=== PATIENT | male | born 1950 | race Caucasian/White ===

== ENCOUNTER → 2020-11-13 | Outpatient (CLI) | payer OTHER | LOC: SJCVCIMAG 10:04 | PROVIDERS: ATTEND Internal Medicine | DX: I08.3 Combined rheumatic disorders of mitral, aortic and tricuspid valves (principal); I27.20 Pulmonary hypertension, unspecified; E78.5 Hyperlipidemia, unspecified; I10 Essential (primary) hypertension; Z79.899 Other long term (current) drug therapy ==

== ENCOUNTER 2021-02-05 09:12 | Observation (INO) | payer OTHER ==
[~2021-02-05] VITALS: Ht 167.6 cm; Wt 80.7 kg
[2021-02-05 09:56] VITALS: BP 149/78
[2021-02-05 09:57] LABS: HEMOGLOBIN 15.6 gm/dL (14.0-18.0); MCH 29.7 pg (26.0-34.0); MCHC 33.1 g/dL (28.0-37.0); MCV 89.6 fL (80.0-100.0); RBC 5.25 mil/uL (4.50-6.00); RDW 13.3 % (10.5-14.5); WBC 4.8 thou/uL (4.0-11.0)
[2021-02-05] MEDS ORDERED: LIPITOR20 MG PO (10:01)
[2021-02-05] MEDS ORDERED: LORATIDINE 10 M10 M1 PO (10:02)
[2021-02-05] MEDS ORDERED: MOBIC7.5 MG PO (10:03)
[2021-02-05] MEDS ORDERED: TOPROL XL25 MG PO (10:03)
[2021-02-05] MEDS ORDERED: NITROSTAT0.4 M1 SUBLING (10:04)
[2021-02-05] MEDS ORDERED: FISH OIL 1,001000 M3 PO (10:05)
[2021-02-05] MEDS ORDERED: PRILOSEC OTC20 MG PO (10:05)
[2021-02-05 10:11] LABS: CREATININE 0.9 mg/dL (0.7-1.3)
[2021-02-05 19:15] VITALS: BP 148/77
--- NOTE | 2021-02-05 19:34 | NUR ---
ASSUMED CARE OF PT AT APPROX 1545 FROM [facility] MONITOR. ADMISSION COMPLETE. R GROIN SITE CDI, NO BRUISING OR HEMATOMA. PT SETTLED IN ROOM. PT A&OX4, NO C/O PAIN OR DISTRESS. BEDREST COMPLETE. WILL CONTINUE TO MONITOR FOR CHANGES AND FOLLOW POC.
[2021-02-06 05:17] VITALS: BP 135/65
[2021-02-06 05:57] LABS: HEMATOCRIT 42.4 % (42.0-52.0); MCH 29.5 pg (26.0-34.0); MCHC 32.9 g/dL (28.0-37.0); MCV 89.6 fL (80.0-100.0); RBC 4.74 mil/uL (4.50-6.00); RDW 13.5 % (10.5-14.5); WBC 6.9 thou/uL (4.0-11.0)
[2021-02-06 06:03] LABS: ALBUMIN 3.1 g/dL (3.4-5.0); CALCIUM 8.4 mg/dL (8.5-10.1); POTASSIUM 4.1 mmol/L (3.5-5.1); TOTAL BILIRUBIN 0.5 mg/dL (0.2-1.0)
[2021-02-06] MEDS ORDERED: EFFIENT10 MG PO (07:31)
[2021-02-06] MEDS ORDERED: ASPIRIN325 PO (07:31)
--- NOTE | 2021-02-06 08:06 | NUR ---
PATIENT REMAINS A/OX4. PROCEDURE SITE INTACT. AFEBRILE. DENIES SOA. VSS. DENIES NEEDS. REPORT GIVEN TO ONCOMING RN
[2021-02-06 08:13] VITALS: BP 148/80
[2021-02-06 09:39] VITALS: BP 148/80
--- NOTE | 2021-02-06 10:51 | NUR ---
ALERT AND ORIENTED AND HAS DENIED PAIN. VITALS STABLE. UP AD IDA AND TOLERATING DIET. DC ORDERS RECEIVED AND RX CALLED IN TO HIS PHARMACY BY [facility]. DC INSTRUCTIONS GIVEN TO PATIENT AND QNS ANSWERED. IV DC'D AND PATIENT DC'D AT 1045.
--- NOTE | 2021-02-08 23:54 | CATHLAB ---
[facility] [address] [place] [address] INVASIVE PROCEDURE REPORT Name: GABRIEL MICHELE Room #: 200-I [facility] [place] Stewart#: [id number] Admission: 02/05/21 Attend Phys: Marcio Dia Discharge: 02/06/21 Date of : 48 Report #: [id number] THIS REPORT FOR: cc: AMIRA PRABHAKAR FAMILY PHYSICIAN or PCP Marcio Dia MD ~ APPROVED REPORT Study performed: 02/05/2021 11:04:27 Patient Details The patient is a 70 year-old male Event Personnel Marcio Dia Facilities Maintenance Technician, Marilia Johnston RN RN, , Kate Main RTR, DOUGHNUT MACHINE OPERATOR HELPER Monitor, Francy Finnegan Dotson, Jordan RTR Monitor Procedures Performed Art Access - R femoral artery* Left Heart Cath w/or w/o Coronaries [id number] [facility] Place w/wo Plasty Single CIRC [id number] 02547 Initial Mod Sed Same Phys/QHP Gr5y 033230 26051 Mod Sed Same Phys/QHP Ea [id number] Hemostasis w/ Mynx, supervision of conscious sedataion Indication Chest pain Risk Factors Dysplipidemia Procedure Narrative The Right Groin^ was infiltrated with 1% Lidocaine subcutaneous anesthesia. A PINNACLE 4FR Sheath #[id number] sheath was inserted into the RFA^. Coronary angiography was performed using coronary diagnostic catheters. The right coronary system was accessed and visualized with a 4FR JR4 catheter. The left coronary system was accessed and visualized with a 4FR JL4 catheter. The left ventricle was accessed and visualized with a 4FR PIGTAIL catheter. Left ventricular/Aortic Valve gradient assessed via catheter pullback. Closure device was deployed with a 6 Fr MYNXGRIP 6/7F #[id number]. The patient tolerated the procedure well and there were no complications associated with the procedure. There was no hematoma. [facility] [address] [place] [address] INVASIVE PROCEDURE REPORT Name: GABRIEL MICHELE Room #: 200-I [facility]#: [id number] Admission: 02/05/21 Attend Phys: Marcio Mcclure Discharge: 02/06/21 Date of : 48 Report #: [id number] Intraoperative Conscious Sedation Sedation start time: 1144 Case end Time: 1235 Versed 2 mg Fluoro Time: 10.40 minutes Dose: DAP 37130.30 cGycm2 2644 mGy Contrast Type and Amount: Omnipaque 150 ml Coronary Angiography The patient's coronary anatomy is right dominant. Diagnostic Cath Left Main Moderate to large caliber vessel of normal origin bifurcstes into Left Anterior Descending and Left Circumflex arteries.It is free of significant plaqueing. LAD Moderate caliber type III vessel with a mild less than 50% lesion in its proximal segment. The artery then gives rise to a small to moderate caliber D1 with mild irregularities in its course. It then continues in the anteriorinterventricular groove terminating as a small caliber veseel in the inferoposterior segment Diagonal 1 small to moderate caliber vessel with nonobstructive luminal irregularities Diagonal 2 insignificant caliber vessel Circumflex Moderate to large caliber vessel with mild lesion at its origin. It then continues giving rise to a large obtuse mariginal vessel with a proximal 80-90% lesion. The LCx then terminates as a small caliber posterior wall vessel which give rise to left to right collaterals supplying distal RCA OM1 Moderate to large caliber vessel with a promial high grade lesion. the vessel reconstitutes proceeding toward the lateral apical wall giving branches in its course. No high grade lesions noted beyond proximal portion Right Coronary Moderate caliber vessel of normal origin has mild to moderate irregularities until after the acute margin then is totally occluded. The distal is small in caliber and diffusely diseased as visualized from Left coronary aretry injections R PDA small caliber vessel of less than 1.0mm diameter Left Ventriculography Left Ventriculography was not performed. Hemodynamics The aortic pressure is 168/73 mmHg with a mean of 114 mmHg. The left ventricular pressure is 177/11 mmHg with a mean of mmHg. The left ventricular end diastolic pressure is 19 mmHg. Pullback from the left [facility] [address] [address] INVASIVE PROCEDURE REPORT Name: GABRIEL MICHELE Room #: 200-I [facility] [place] ..#: [id number] Admission: 02/05/21 Attend Phys: Marcio Mcclure Discharge: 02/06/21 Date of : 48 Report #: [id number] ventricle to the aorta revealed no gradient across the aortic valve. PCI Technique The 4 palauan system was exchanged for a 6 fr system. The left coronary was engaged with a JL4 guide catheter without issues. Angiomax bolus and infusion was initiated. o.014 wire was advanced into the distal OM1 and a 3.5mm x 18mm stent was attempted to be positioned across the lesion. This was unsuccessful and the stent was exchanged utilizing a magnet for a 3.5mm balloon. The lesion was dilated without incidence. The balloon was now exchanged for a 4.0mm x 18 mm TOYA stent that was succesfully deployed across the high grade lesion to 4.0mm diameter. In view of proximal narrowing the stent was placed to cover proximal section short of the ostial mils lesion. Post dilatation the vessel was widely patent with VARINDER 3 flow. Collaterals to the RCA remained intact. No loss of side branch, intraluminal disruption or distal embolization was present. Pt tolerated procedur well and there were no complications. PCI Technique Lesion Percutaneous coronary intervention was performed on the mid circumflex artery segment. A LAUNCHER 6FR JL4 #[id number] Guide Catheter was used to engage the ostium. A Luge Wire .014 x 182CM #[id number] Interventional Guidewire was used to cross the lesion. BALLOON DILATION A Balloon catheter Sprinter OTW 3.0 x 12 #[id number] was inserted and inflated up to 8.00atm for 21seconds. STENT DEPLOYMENT A drug-eluting stent RESOLUTE KUSUM OTW 4.0 X 18 #[id number] was inserted and inflated up to 12.00atm for 15seconds. Conclusion 1. 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 Abnormal Hemodynamics with elevated LVEDP 3. Successful Percutaneous revascularization of the High grade LCx stenosi Recommendations Cardiac Risk Reduction Program Medical Therapy [facility] [address] [address] INVASIVE PROCEDURE REPORT Name: GABRIEL MICHELE Room #: 200-I [facility] [place] [facility]#: [id number] Admission: 02/05/21 Attend Phys: Marcio Mcclure Discharge: 02/06/21 Date of : 48 Report #: [id number] Medications Administered Prasugrel <ELECTRONICALLY SIGNED> By: Marcio Dia MD 02/08/214 53 53 Marcio Dia MD /INF
== END 2021-02-06 10:53 | disposition home or self-care (01) ==
LOC: CATH 09:12 → 2N 15:55 → CATH 15:56 → 2N 15:57
PROVIDERS: ADMIT Internal Medicine; ATTEND Internal Medicine
DX: I25.10 Atherosclerotic heart disease of native coronary artery without angina pectoris (principal); I10 Essential (primary) hypertension; E78.5 Hyperlipidemia, unspecified; I35.0 Nonrheumatic aortic (valve) stenosis; Z79.899 Other long term (current) drug therapy; Z79.82 Long term (current) use of aspirin

== ENCOUNTER → 2021-02-13 | Outpatient (CLI) | payer OTHER ==
[~2021-02-13] MED LIST: ASPIRIN325 PO; EFFIENT10 MG PO; FISH OIL 1,001000 M3 PO; LIPITOR20 MG PO; LORATIDINE 10 M10 M1 PO; MOBIC7.5 MG PO; NITROSTAT0.4 M1 SUBLING; PRILOSEC OTC20 MG PO; TOPROL XL25 MG PO
== END ==
LOC: SJCVCIMAG 10:31
PROVIDERS: ATTEND Internal Medicine
DX: R10.9 Unspecified abdominal pain (principal); R19.09 Other intra-abdominal and pelvic swelling, mass and lump; I10 Essential (primary) hypertension; E78.5 Hyperlipidemia, unspecified; M79.661 Pain in right lower leg

== ENCOUNTER → 2021-05-14 | Outpatient (CLI) | payer OTHER | LOC: SJCVC 10:18 | PROVIDERS: ATTEND Internal Medicine | DX: E78.5 Hyperlipidemia, unspecified (principal); I10 Essential (primary) hypertension; Z79.899 Other long term (current) drug therapy ==